=== PATIENT | male | born 1965 | race Two or more races ===

== ENCOUNTER 2023-10-05 04:21 | Day surgery (SDC) | payer OTHER ==
[2023-10-02 09:06] VITALS: BMI 33.9
[2023-10-05] MEDS ORDERED: MIDAZOLAM HCL 2 MG/2 ML SINGLE DOSE VIAL ONE (12:23)
[2023-10-05] MEDS ORDERED: ONDANSETRON 4 MG/2 ML VIAL ONE (12:23)
[2023-10-05 13:22] VITALS: RESP 16; TEMP 97.1
[2023-10-05 13:51] VITALS: BP 131/94; PULSE 65
== END 2023-10-05 14:00 | disposition home or self-care (01) ==
LOC: JASU-SURG 04:21
PROVIDERS: ATTEND Urology
PROC: 0TF4XZZ Fragmentation in Left Kidney Pelvis, External Approach (ICD-10-PCS; principal; 2023-10-05 13:00)
DX: N20.0 Calculus of kidney (principal)